=== PATIENT | female | born 1990 | race Caucasian/White ===

== ENCOUNTER 2016-07-01 14:57 | Emergency (ER) | payer BC ==
[2016-07-01 15:09] VITALS: BP 132/74
--- NOTE | 2016-07-01 15:09 | ED Physician Chart ---
Chief Complaint/HPI - Patient Information Date Seen:: 07/01/16 Time Seen:: 15:00 Chief Complaint:: sore throat History of Present Illness:: 26-year-old female complains of acute, moderate, worsening, worse with swallowing, aching, sore throat 3 weeks. Has associated increased maxillary sinus pressure. Historian:: Patient Review:: Nurse's Note Reviewed Review of Systems - Review of Systems Other: Complete system review otherwise unremarkable except as noted in HPI. Past Medical History - Past Medical History Past Medical History: No significant medical hx Family History: None Social History: Non Smoker, No Alcohol, No Drug Use Surgical History: None Psychiatricy History: None Medication: None Family Medical History - Family Member Mother History Unknown: Yes Ethnicity: Physical Exam - Physical Examination Other:: INITIAL VITAL SIGNS: Reviewed by me GENERAL: Alert and interactive. No acute distress HEAD: Head is normocephalic and atraumatic EYES: EOMI. . No scleral icterus. No conjunctival injection ENT: Moist mucous membranes. Tonsils are +1 edematous and erythematous. NECK: Supple. Bilateral cervical adenopathy. Full range of motion RESPIRATORY: No tachypnea. Clear breath sounds bilaterally. No wheezing, rales, or rhonchi CV: Regular rate and rhythm. No murmurs, rubs, or gallops ABDOMEN: Soft, non-distended, non-tender. No guarding. No rebound. No masses. EXTREMITIES: No deformity. No cyanosis. No edema. SKIN: Warm and dry. No obvious rashes. NEUROLOGIC: Alert and oriented. Face is symmetric. Speech is normal. Moves all extremities equally. Motor and sensory distally intact. ED Septic Shock - . Is Septic Shock (SBP<90, OR Lactate>4 mmol\L) present?: No Reassessment (Disposition) - Reassessment Reassessment:: The patient's blood pressure was elevated (>120/80) but appears stable without evidence of hypertensive emergency or urgency. The patient was counseled about the risks hypertension urged to pursue outpatient monitoring and therapy within a week with her primary care physician. Patient has pharyngitis. We will treat with azithromycin and ibuprofen. Prescriptions provided. Return to ER precautions given. Follow-up PCP 1-2 days. Patient understands and agrees the plan. Reassessment Condition:: Improved - Diagnosis Diagnosis:: Pharyngitis, acute, unspecified Pre-hypertension - Aftercare/Follow up Instructions Aftercare/Follow-Up Instructions:: Counseled pt regarding lab results/diagnosis & need follow up, Refer to Discharge Instructions Medication Prescribed:: Azithromycin Ibuprofen - Patient Disposition Discharge/Transfer:: Home Time:: 15:09 Condition at Disposition:: Improved ED Discharge Plan - Patient Disposition Admit/Discharge/Transfer: PT DISCHARGED HOME Condition at Disposition: Improved Instructions: Viral and Bacterial Pharyngitis Additional Instructions: Follow-up with her primary care physician within one to 2 days
== END 2016-07-01 15:20 | disposition home or self-care (01) ==
LOC: ER 14:57
DX: J02.9 Acute pharyngitis, unspecified (principal)
CPT/HCPCS: Z7502

== ENCOUNTER 2016-10-09 08:00 | Emergency (ER) | payer BC, MEDICAID ==
--- NOTE | 2016-10-09 08:41 | ED Physician Chart ---
Chief Complaint/HPI - Patient Information Date Seen:: 10/09/16 Time Seen:: 08:30 Chief Complaint:: vaginal spotting History of Present Illness:: Patient noted vaginal spotting this morning. Patient denies abdominal pain. Patient's last normal menstrual period was 07/22/16. Patient is 2 para 0 AB 1 which was a miscarriage. 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 Musculoskeletal: No bone or joint pain Endocrine: No polyuria Psychiatric: No prior psych history Hematopoietic: No bruising Allergic/Immuno: No urticaria Neurological: No syncope, No focal symptoms Past Medical History - Past Medical History Past Medical History: No significant medical hx Family History: Diabetes Melitus, Cancer Social History: Non Smoker, No Alcohol Surgical History: None Psychiatricy History: None Medication: Reviewed Family Medical History - Family Member Mother Hx Family Diabetes: Yes Physical Exam - Physical Examination General/Constitutional: Well-developed, well-nourished, Alert Head: Atraumatic Eyes: Lids, conjuctiva normal, PERRL Skin: Nl inspection, No rash ENMT: External ears, nose nl Neck: No nuchal rigidity Respiratory: Nl effort/Exclusion, Clear to Auscultation Cardio Vascular: RRR GI: No tenderness/rebounding/guarding Extremities: No edema, Normal digits & nails Neuro/Psych: No focal deficits Misc: No paraspinal tenderness Labs/Radiology/EKG Results - Lab Results Results: Laboratory Results - last 24 hr 10/09/16 10/09/16 10/09/16 08:45 08:45 08:45 WBC 11.9 H RBC 4.40 Hgb 13.0 Hct 38.0 MCV 86.3 MCH 29.5 MCHC Differential 34.2 RDW 12.1 Plt Count 291 MPV 7.3 Neutrophils % 77.4 Lymphocytes % 15.8 L Monocytes % 5.1 Eosinophils % 0.9 Basophils % 0.8 Beta HCG, Quant [id number] Blood Type O POSITIVE Antibody Screen NEGATIVE - Radiology Results Results: Ultrasound shows a 9 week 3 day IUP; FHR 128. Assessment - Assessment General Assessment: At 1020 patient states the vaginal bleeding has stopped. Patient instructed to avoid strenuous activity like walking up stairs and carrying heavy boxes. ED Septic Shock - . Is Septic Shock (SBP<90, OR Lactate>4 mmol\L) present?: No - <6hrs of presentation: Vital Signs: Vital Signs - 8 hr 10/09/16 08:14 Temp 98.4 F HR 74 RR 16 O2 Sat % 99 Reassessment (Disposition) - Reassessment Reassessment Condition:: Unchanged - Diagnosis Diagnosis:: Threatened AB - Aftercare/Follow up Instructions Aftercare/Follow-Up Instructions:: Refer to Discharge Instructions - Patient Disposition Discharge/Transfer:: Home Condition at Disposition:: Stable, Improved
[2016-10-09 09:12] LABS: % BASOPHILS 0.8 % (0.0-2.0); % EOSINOPHILS 0.9 % (0.0-5.0); % LYMPHOCYTES 15.8 % (20.0-50.0); % MONOCYTES 5.1 % (2.0-10.0); % NEUTROPHILS 77.4 % (40.0-80.0); MEAN CELL VOLUME 86.3 fl (81-100); MEAN CORPUSCULAR HEMOGLOBIN 29.5 pg (27.0-31.0); MEAN CORPUSCULAR HGB CONC 34.2 pg (28.0-36.0); MEAN PLATELET VOLUME 7.3 fl; NEUTROPHILE ABSOLUTE 9.2 Th/cmm (1.8-8.0); PLATELET COUNT 291 Th/cmm (150-400); RED CELL DISTRIBUTION WIDTH 12.1 % (11.5-20.0); WHITE BLOOD COUNT 11.9 Th/cmm (4.8-10.8)
--- NOTE | 2016-10-09 10:22 | Diagnostic Imaging Report ---
OB ultrasound HISTORY: Abnormal bleeding Transvaginal sonographic technique was utilized. There is a bulbous shaped uterus (10.5 x 6.9 x 7.6 cm). There is a single intrauterine gestation with a well-defined sac in a rind of decidual reaction. A pole is seen. cardiac motion is noted (128 BPM). The crown-rump length equals 2.59 cm. This is consistent with a sonographic age of 9 weeks 3 days +/- 1 week. An intraluminal membrane is seen about the periphery of the sac. The sonographic. Is consistent with changes of chorioamnionic separation. Follow-up is needed. IMPRESSION: 1. Single intrauterine gestation with an approximate age of 9 weeks 3 days +/- 1 week 2. Sonographic findings consistent with chorioamnionic separation. Follow-up is needed.
== END 2016-10-09 10:30 | disposition home or self-care (01) ==
LOC: ER 08:00
DX: O20.0 Threatened abortion (principal); Z3A.09 9 weeks gestation of pregnancy
CPT/HCPCS: 36415-UA; 76801-TC; 84702-TC; 85025-TC; 86850-TC; 86900-TC; 86901-TC

== ENCOUNTER 2018-01-25 16:03 | Emergency (ER) | payer MEDICAID | END 2018-01-25 16:49 | disposition left against medical advice (07) | LOC: ER 16:03 | DX: N93.9 Abnormal uterine and vaginal bleeding, unspecified (principal); M54.9 Dorsalgia, unspecified; Z53.29 Procedure and treatment not carried out because of patient's decision for other reasons ==